=== PATIENT | female | born 1970 | race Caucasian/White ===

== ENCOUNTER 2018-03-05 03:33 | Emergency (ER) | payer SELFPAY ==
[2018-03-05 03:34] VITALS: BMI 34.9
[2018-03-05 04:07] VITALS: BP 107/64; PULSE 75; RESP 18; TEMP 98.2; O2SAT 99
--- NOTE | 2018-03-05 04:44 | ED PDOC ---
Arrival/HPI - General Time Seen by Provider: 03/05/18 03:38 Historian: Patient - History of Present Illness Narrative History of Present Illness (Text): 03/05/18 04:41 This is a 48 year old female with PMH of DM, GERD and gastric bypass presenting to the ER of one week history of right eye swelling and redness, headaches and nausea. She was diagnosed with episcleritis one year ago and has been taking prednisone eye drops for intermittent symptoms through the year, but this time is worse and unresponsive to steroid drops. She denies chest pain, SOB, vision blurriness, tinnitus, fevers, chills, abdominal pain, vomiting, urinary complaints, back pain, numbness and tingling. PMD is Dr. Bravo Eye doctor is Dr. Jung Time/Duration: < week Symptom Course: Intermittent Activities at Onset: Light Context: Home Past Medical History - Provider Review Nursing Documentation Reviewed: Yes - Infectious Disease Hx of Infectious Diseases: None - Tetanus Immunization Tetanus Immunization: Unknown - Cardiac Hx Cardiac Disorders: No Hx Pacemaker: No - Pulmonary Hx Respiratory Disorders: Yes Hx Sleep Apnea: Yes (USES C-PAP) - Neurological Hx Neurological Disorder: No Hx Paralysis: No - HEENT Hx HEENT Disorder: Yes (CONTACTS) - Renal Hx Renal Disorder: No - Endocrine/Metabolic Hx Endocrine Disorders: No - Hematological/Oncological Hx Blood Disorders: No Hx Blood Transfusions: No - Integumentary Hx Dermatological Disorder: No - Musculoskeletal/Rheumatological Hx Musculoskeletal Disorders: Yes Hx Falls: No Hx Osteoarthritis: Yes - Gastrointestinal Hx Gastrointestinal Disorders: Yes Hx Gastritis: Yes Other/Comment: H. pylori - Genitourinary/Gynecological Hx Genitourinary Disorders: No - Psychiatric Hx Psychophysiologic Disorder: No Hx Substance Use: No - Surgical History Hx Section: Yes (X1) Hx Gastric Bypass Surgery: Yes (2015) Other/Comment: ECTOPIC - Anesthesia Hx Anesthesia: Yes Hx Anesthesia Reactions: No Hx Malignant Hyperthermia: No - Suicidal Assessment Feels Threatened In Home Enviroment: No Family/Social History - Physician Review Nursing Documentation Reviewed: Yes Family/Social History: Unknown Family HX Smoking Status: Light Smoker < 10 Cigarettes Daily Hx Alcohol Use: Yes Frequency of alcohol use: Socially Hx Substance Use: No Hx Substance Use Treatment: No Allergies/Home Meds Allergies/Adverse Reactions: Allergies NSAIDS (Non-Steroidal Anti-Inflamma Allergy (Verified 01/22/16 07:23) VOMITING Home Medications: Home Meds Medication Instructions Recorded Confirmed Acetaminophen [Tylenol Extra 500 mg PO Q6 PRN 03/05/18 03/05/18 Strength] Review of Systems - Physician Review All systems were reviewed & negative as marked: Yes - Review of Systems Constitutional: Normal. absent: Fevers Eyes: Photophobia, Eye Pain. absent: Vision Changes ENT: Normal. absent: Hearing Changes Respiratory: Normal. absent: SOB Cardiovascular: Normal. absent: Chest Pain Gastrointestinal: Nausea. absent: Abdominal Pain, Constipation, Diarrhea, Vomiting, Hematochezia, Hematemesis Genitourinary Female: Normal. absent: Dysuria Musculoskeletal: Normal Skin: Normal Neurological: Headache. absent: Dizziness, Focal Weakness, Gait Changes, Speech Changes, Facial Droop Psychiatric: Normal Physical Exam Vital Signs Temp Pulse Resp BP Pulse Ox 03/05/18 04:03 98.2 F 75 18 107/64 99 Medical Decision Making ED Course and Treatment: 03/05/18 04:45 Impression: This is a 48 year old female with PMH of DM, GERD and gastric bypass presenting to the ER of one week history of right eye swelling and redness, headaches and nausea. Differential not limited to: episcleritis vs periseptil cellulitis vs stye Plan: -toradol -oral steroids Progress: 03/05/18 05:09 Patient is resting comfortably, vital signs are stable and afebrile. - Medication Orders Current Medication Orders: Discontinued Medications Ketorolac Tromethamine (Toradol) 60 mg IM STAT STA Stop: 03/05/18 04:38 Last Admin: 03/05/18 04:44 Dose: 60 mg MAR Pain Assessment Document 03/05/18 04:44 CNR (Rec: 03/05/18 04:44 CNR [id number]) Pain Reassessment Is this a pain reassessment? No IM Administration Charges Document 03/05/18 04:44 CNR (Rec: 03/05/18 04:44 CNR [id number]) Injection Site MAR Injection Site Right Gluteus Jaime Charges for Administration # of IM Administrations 1 Prednisone (Prednisone Tab) 60 mg PO STAT ONE Stop: 03/05/18 04:38 Last Admin: 03/05/18 04:44 Dose: 60 mg - PA / LOCOMOTIVE ENGINEER D[employer]EL / Resident Statement MD/DO has reviewed & agrees with the documentation as recorded. MD/DO has examined the patient and agrees with the treatment plan. Disposition/Present on Arrival - Present on Arrival Any Indicators Present on Arrival: No History of DVT/PE: No History of Uncontrolled Diabetes: No Urinary Catheter: No History of Decub. Ulcer: No History Surgical Site Infection Following: None - Disposition Have Diagnosis and Disposition been Completed?: Yes Diagnosis: Scleritis and episcleritis of right eye Disposition: HOME/ ROUTINE Disposition Time: 04:30 Condition: GOOD Additional Instructions: BUTCH OLIVIER, thank you for letting us take care of you today. The emergency medical care you received today was directed at your acute symptoms. If you were prescribed any medication, please fill it and take as directed. It may take several days for your symptoms to resolve. Return to the Emergency Department if your symptoms worsen, do not improve, or if you have any other problems. Please contact your doctor or call one of the physicians/clinics you have been referred to that are listed on the Patient Visit Information form that is included in your discharge packet. Bring any paperwork you were given at discharge with you along with any medications you are taking to your follow up visit. Our treatment cannot replace ongoing medical care by a primary care provider outside of the emergency department. Thank you for allowing the [facility] team to be part of your care today. Follow up with your eye doctor this morning for re-evaluation and further management. Prescriptions: predniSONE [Prednisone] 40 mg PO DAILY #10 tab Referrals: [employer] Aditya Travis, [Non-Staff] - Follow up with primary Forms: [employer] (Swedish), WORK NOTE
== END 2018-03-05 04:52 | disposition home or self-care (01) ==
LOC: ED 03:33
DX: H15.001 Unspecified scleritis, right eye (principal); H15.101 Unspecified episcleritis, right eye; F17.210 Nicotine dependence, cigarettes, uncomplicated; E11.9 Type 2 diabetes mellitus without complications
CPT/HCPCS: 96372; 99285; J1885

== ENCOUNTER 2018-06-19 11:29 | Emergency (ER) | payer OTHER ==
[2018-06-19 12:02] VITALS: BMI 39.9
[2018-06-19] MEDS ORDERED: Sodium Chloride 0.9% 1,000 ML IV STA (12:13)
[2018-06-19 12:15] VITALS: BP 132/81; PULSE 94; RESP 18; TEMP 97.8; O2SAT 98
[2018-06-19 12:27] LABS: URINE BILIRUBIN NEGATIVE (NEGATIVE); URINE BLOOD TRACE-LYSED (NEGATIVE); URINE GLUCOSE (UA) NEGATIVE (NEGATIVE); URINE LEUKOCYTE ESTERASE NEGATIVE Leu/uL (NEGATIVE); URINE PROTEIN NEGATIVE mg/dL (<30 mg/dL)
--- NOTE | 2018-06-19 12:28 | ED PDOC ---
Arrival/HPI - General Chief Complaint: Anxiety Time Seen by Provider: 06/19/18 11:36 Historian: Patient - History of Present Illness Narrative History of Present Illness (Text): 06/19/18 12:20 A 48 year old female, whose past medical history includes diabetes and GERD, presents to the emergency department complaining of migraine and anxiety for the past 2 days. Patient reports she has been unable to sleep due to these symptoms. Also, she mentions feeling very stressed at work and home recently, and feels she cannot stop crying. Today, migraine and anxiety became gradually worse and decided to arrive to the ER to be treated. Patient denies any suicidal/homicidal ideation, or any other complaints at this time. PMD: Dr. Humphreys Time/Duration: < week (2 days) Past Medical History - Provider Review Nursing Documentation Reviewed: Yes - Infectious Disease Hx of Infectious Diseases: None - Tetanus Immunization Tetanus Immunization: Unknown - Cardiac Hx Cardiac Disorders: No Hx Pacemaker: No - Pulmonary Hx Respiratory Disorders: Yes Hx Sleep Apnea: Yes (USES C-PAP) - Neurological Hx Neurological Disorder: No Hx Paralysis: No - HEENT Hx HEENT Disorder: Yes (CONTACTS) - Renal Hx Renal Disorder: No - Endocrine/Metabolic Hx Endocrine Disorders: No - Hematological/Oncological Hx Blood Disorders: No Hx Blood Transfusions: No - Integumentary Hx Dermatological Disorder: No - Musculoskeletal/Rheumatological Hx Musculoskeletal Disorders: Yes Hx Falls: No Hx Osteoarthritis: Yes - Gastrointestinal Hx Gastrointestinal Disorders: Yes Hx Gastritis: Yes Other/Comment: H. pylori. Vertical Sleeve Gastrectomy - Genitourinary/Gynecological Hx Genitourinary Disorders: No - Psychiatric Hx Anxiety: Yes Hx Substance Use: No - Surgical History Hx Section: Yes (X1) Hx Gastric Bypass Surgery: Yes (2015) Other/Comment: ECTOPIC - Anesthesia Hx Anesthesia: Yes Hx Anesthesia Reactions: No Hx Malignant Hyperthermia: No - Suicidal Assessment Feels Threatened In Home Enviroment: No Family/Social History - Physician Review Nursing Documentation Reviewed: Yes Family/Social History: No Known Family HX Smoking Status: Heavy Smoker > 10 Cigarettes Daily Hx Alcohol Use: Yes Frequency of alcohol use: Socially Hx Substance Use: No Hx Substance Use Treatment: No Allergies/Home Meds Allergies/Adverse Reactions: Allergies NSAIDS (Non-Steroidal Anti-Inflamma Allergy (Verified 06/19/18 12:02) VOMITING Home Medications: Home Meds Medication Instructions Recorded Confirmed Acetaminophen [Tylenol Extra 500 mg PO Q6 PRN 03/05/18 03/05/18 Strength] Review of Systems - Physician Review All systems were reviewed & negative as marked: Yes - Review of Systems Neurological: Headache Psychiatric: Anxiety. absent: Suicidal Ideation (and no homicidal ideation) Physical Exam - Physical Exam Narrative Physical Exam (Text): Gen: VS reviewed, alert, well developed, well nourished, nontoxic, mild distress, tearful. ENT: normal pharynx. Eye: EOMI, PERRL. Neck: no JVD, supple, no adenopathy. CV: regular rate, regular rhythm, no rubs, no murmur, no gallops, S1, S2, pulses equal and strong. Pulm: no distress, clear to auscultation, no wheeze, no rhonchi, breath sounds equal, no rales. Abd: soft, nontender, no guarding, no rebound, no rigidity, normal bowel sounds. Ext: no edema. Skin: good color, no rash, no cyanosis. Psych: responds appropriately to questions, normal affect. Neuro: oriented x 3, CN2-12 intact grossly, motor intact, sensation intact. Vital Signs Reviewed: Yes Vital Signs Temp Pulse Resp BP Pulse Ox 06/19/18 12:02 97.8 F 94 H 18 132/81 98 Temperature: Afebrile Blood Pressure: Normal Pulse: Regular Respiratory Rate: Normal Appearance: Positive for: Well-Appearing, Non-Toxic, Other (tearful) Pain Distress: None Mental Status: Positive for: Alert and Oriented X 3 Medical Decision Making ED Course and Treatment: 06/19/18 12:24 Impression: A 48 year old female with migraines and anxiety. Physical exam shows patient is tearful; no other acute findings on examination. Plan: -- Urine Culture -- Urinalysis -- POC Urine Test -- Tylenol -- Reglan -- IV Fluids -- Reassess and disposition Prior Visits: Notes and results from previous visits were reviewed. Patient was last seen in the emergency department on 03/05/2018 for right eye swelling and redness, headaches, and nausea. Patient was discharged home. Progress Notes: 06/19/18 13:00 re-eval, patient states that she does not want to stay for further treatment. patient states that her headache is still present. patient was offered further treatment but refused. patient was offered the opportunity to ask questions and did not have any further inquiries. initially, patient agreed to IVF and treatment only for headache. patient was offered mental health evaluation but refused. i was then later informed by the nurse that the patient refused IVF and reglan. it was reported to me that the patient requested toradol for headache but has an allergy to nsaids. RN also informed me that the boyfriend requested a note for work. i refused to write this note as it is not appropriate request. - Medication Orders Current Medication Orders: Sodium Chloride (Sodium Chloride 0.9%) 1,000 mls @ 999 mls/hr IV .Q1H1M STA Stop: 06/19/18 13:13 Discontinued Medications Acetaminophen (Tylenol 325mg Tab) 975 mg PO STAT STA Stop: 06/19/18 12:14 Metoclopramide HCl (Reglan) 10 mg IVP STAT STA Stop: 06/19/18 12:14 - Scribe Statement The provider has reviewed the documentation as recorded by the Susana Roger Provider Scribe Attestation: All medical record entries made by the Scribe were at my direction and personally dictated by me. I have reviewed the chart and agree that the record accurately reflects my personal performance of the history, physical exam, medical decision making, and the department course for this patient. I have also personally directed, reviewed, and agree with the discharge instructions and disposition. Disposition/Present on Arrival - Present on Arrival Any Indicators Present on Arrival: No History of DVT/PE: No History of Uncontrolled Diabetes: No Urinary Catheter: No History of Decub. Ulcer: No History Surgical Site Infection Following: None - Disposition Have Diagnosis and Disposition been Completed?: Yes Diagnosis: Migraine, Anxiety Disposition: HOME/ ROUTINE Disposition Time: 13:04 Patient Plan: Discharge Patient Problems: Current Active Problems Problem Status Onset Anxiety Acute Migraine Acute Condition: STABLE Discharge Instructions (ExitCare): Migraine Headache (DC), Anxiety, Adult (DC) Additional Instructions: Return for any new or worsening symptoms. Follow up with a neurologist as soon as possible. BUTCH OLIVIER, thank you for letting us take care of you today. Your provider was Dr. Tima Vasquez and you were treated for migraine headache and anxiety. The emergency medical care you received today was directed at your acute symptoms. If you were prescribed any medication, please fill it and take as directed. It may take several days for your symptoms to resolve. Return to the Emergency Department if your symptoms worsen, do not improve, or if you have any other problems. Please contact your doctor or call one of the physicians/clinics you have been referred to that are listed on the Patient Visit Information form that is included in your discharge packet. Bring any paperwork you were given at discharge with you along with any medications you are taking to your follow up visit. Our treatment cannot replace ongoing medical care by a primary care provider outside of the emergency department. Thank you for allowing the [facility] team to be part of your care today. If you had an X-Ray or CT scan: A Radiologist will review the ED reading if any change in treatment is needed we will contact you. If you had a blood, urine, or wound culture: It will take several days for the results, if any change in treatment is needed we will contact you. If you had an STI test: It will take 48 hours for the results. Please call after 1 week if you have not heard back. Referrals: Bill Leone MD [Staff Provider] - Follow up with primary [facility] [Outside] - Follow up with primary Bailey Felipe MD [Medical Doctor] - Follow up with primary Forms: [employer] (Ecuadorean), WORK NOTE
[2018-06-19 12:32] LABS: URINE APPEARANCE CLEAR (CLEAR); URINE COLOR YELLOW (YELLOW)
[2018-06-19 12:45] LABS: URINE BACTERIA FEW (NEG); URINE WBC 0 - 2 /hpf (0-6)
== END 2018-06-19 13:20 | disposition home or self-care (01) ==
LOC: ED 11:29
DX: F41.9 Anxiety disorder, unspecified (principal); G43.909 Migraine, unspecified, not intractable, without status migrainosus; K21.9 Gastro-esophageal reflux disease without esophagitis